=== PATIENT | female | born 1970 | race Caucasian/White ===

== ENCOUNTER 2018-09-28 11:22 | Emergency (ER) | payer OTHER ==
[~2018-09-28] VITALS: Ht 167.6 cm; Wt 104.3 kg
[2018-09-28 11:28] VITALS: BP 123/78
[2018-09-28] MEDS ORDERED: predniSONE 20 MG TAB PO ONE (11:30)
[2018-09-28] MEDS ORDERED: ALBUTEROL SULFATE/IPRATROPIU 3 ML SOL IH ONE ×2 (11:30→12:30)
[2018-09-28] MEDS ORDERED: ALBUTEROL 0.083% 2.5 MG/3 ML NEBU INH ONE ×2 (11:30→12:30)
[2018-09-28 13:01] VITALS: BP 130/72
== END 2018-09-28 13:01 | disposition home or self-care (01) ==
LOC: MED 11:22
DX: J45.901 Unspecified asthma with (acute) exacerbation (principal); Z90.49 Acquired absence of other specified parts of digestive tract; Z90.89 Acquired absence of other organs; J45.909 Unspecified asthma, uncomplicated
CPT/HCPCS: 94640; 99284; J7512; J7613; J7620